=== PATIENT | female | born 1960 | race Caucasian/White ===

== ENCOUNTER 2018-04-12 08:24 | Inpatient (IN) | payer OTHER, MEDICAID ==
[~2018-04-12] VITALS: Ht 160 cm; Wt 74.8 kg
[2018-04-12] MEDS ORDERED: DEXTROSE 50% WATER 50ML SYRINGE IV ONE (09:15)
[2018-04-12] MEDS ORDERED: HYDROCODONE/ACETAMINOPHEN 5/325MG TABLET PO ONE (09:15)
[2018-04-12 09:55] LABS: HEMOGLOBIN. 12.1 g/dL (12.0-16.0); MEAN CORPUSCULAR HEMOGLOBIN 28.9 pg (28.0-32.0); MEAN CORPUSCULAR VOLUME 88.4 fL (81.0-99.0); PLATELET 99 x1000/uL (130-400); RED BLOOD CELL COUNT 4.18 mill/uL (4.2-5.4); RED CELL DISTRIBUTION WIDTH 16.1 % (11.6-14.6)
[2018-04-12 09:56] LABS: CHLORIDE 99 mEq/L (98-107)
[2018-04-12 09:59] LABS: INR 1.2; PARTIAL THROMBOPLASTIN TIME 29.8 sec (23.4-31.0)
[2018-04-12 11:37] LABS: PLATELET ESTIMATE DECREASED
[2018-04-12 12:00] VITALS: BP 164/61
[2018-04-12] MEDS ORDERED: LEVOFLOXACIN 750MG PREMIX 150 ML IV ONE (12:00)
[2018-04-12] MEDS ORDERED: SODIUM CHLORIDE 0.9% 1000ML BAG (SEPSIS BOLUS) IV ONE (12:00)
[2018-04-12 14:00] VITALS: BP 164/61
[2018-04-12] MEDS ORDERED: HYDROCODONE/ACETAMINOPHEN 10/325MG TABLET PO PRN (15:00)
[2018-04-12] MEDS ORDERED: HYDROCODONE/ACETAMINOPHEN 5/325MG TABLET PO PRN (15:00)
[2018-04-12] MEDS ORDERED: ACETAMINOPHEN 650MG SUPP PR PRN (15:00)
[2018-04-12] MEDS ORDERED: MAGNESIUM/ALUMINUM HYDROXIDE/SIMETHICONE 30ML UDC PO PRN (15:00)
[2018-04-12] MEDS ORDERED: ACETAMINOPHEN 650MG/20.3ML UDC GT PRN (15:00)
[2018-04-12] MEDS ORDERED: ONDANSETRON HCL 4MG/2ML INJ IV PRN (15:00)
[2018-04-12] MEDS ORDERED: ACETAMINOPHEN 325MG TABLET PO PRN (15:00)
[2018-04-12 16:00] VITALS: BP_SYST 157; BP_SYST 164; BP_DIAS 61; BP_DIAS 73
[2018-04-12] MEDS ORDERED: MORPHINE SULFATE 4 MG/ML CPJ (NOT FOR IM USE) IV PRN (17:15)
[2018-04-12 20:00] VITALS: BP 150/60
[2018-04-12 20:31] LABS: AMMONIA 48 uMol/L (<32)
[2018-04-12] MEDS: AMLODIPINE 10MG TABLET PO SCH (22:39)
[2018-04-13] VITALS (8 sets, daily range): BP systolic 124–189; BP diastolic 60–99
[2018-04-13] MEDS ORDERED: DEXTROSE 50% WATER 50ML SYRINGE IV ONE (00:34)
[2018-04-13] MEDS ORDERED: DEXTROSE 50% WATER 50ML SYRINGE IV PRN (00:45)
[2018-04-13] MEDS: CLONIDINE 0.1MG TABLET PO PRN ×4 (00:48→21:44)
[2018-04-13 01:06] LABS: T4 FREE 1.02 ng/dL (0.76-1.46)
[2018-04-13 01:08] LABS: CREATINE KINASE MB FRACTION 5.1 ng/mL (0.5-3.6)
[2018-04-13] MEDS: BLOOD SUGAR DIAGNOSTIC STRIP TEST SCH ×4 (07:29→21:44)
[2018-04-13] MEDS: INSULIN LISPRO 100 UNITS/ML SUBCUT SCH ×4 (08:10→21:00)
[2018-04-13] MEDS: AMLODIPINE 10MG TABLET PO SCH ×2 (09:00→13:25)
[2018-04-13 11:28] LABS: BASOPHILS % 0.8 % (0.0-2.0); HEMATOCRIT. 33.1 % (36.0-48.0); HEMOGLOBIN. 10.8 g/dL (12.0-16.0); LYMPHOCYTES % 21.5 % (20.0-50.0); MEAN CORPUSCULAR HEMOGLOBIN 28.7 pg (28.0-32.0); MEAN CORPUSCULAR VOLUME 88.2 fL (81.0-99.0); MEAN PLATELET VOLUME 8.6 fl (7.4-10.4); MONOCYTES % 11.7 % (2.0-8.0); PLATELET 118 x1000/uL (130-400); RED BLOOD CELL COUNT 3.76 mill/uL (4.2-5.4); RED CELL DISTRIBUTION WIDTH 16.4 % (11.6-14.6)
[2018-04-13 11:54] LABS: CHLORIDE 104 mEq/L (98-107)
[2018-04-13 12:00] LABS: PHOSPHORUS 4.2 mg/dL (2.5-4.9)
[2018-04-13 12:01] LABS: LDL CHOLESTEROL 24 mg/dL (5-100)
[2018-04-13 12:05] LABS: CREATINE KINASE 101 IU/L (26-192); T4 FREE 0.94 ng/dL (0.76-1.46)
[2018-04-13 12:11] LABS: HDL CHOLESTEROL 42 mg/dL (40-59)
[2018-04-13] MEDS: LOSARTAN POTASSIUM 50 MG TABLET PO SCH (15:31)
[2018-04-13] MEDS: METOPROLOL TARTRATE 50MG TABLET PO SCH (21:44)
[2018-04-14 04:00] VITALS: BP 177/55
[2018-04-14 06:00] VITALS: BP 152/62
[2018-04-14] MEDS: BLOOD SUGAR DIAGNOSTIC STRIP TEST SCH ×3 (06:55→17:42)
[2018-04-14 08:00] VITALS: BP 190/83
[2018-04-14 08:03] LABS: BASOPHILS % 1.2 % (0.0-2.0); HEMATOCRIT. 34.2 % (36.0-48.0); HEMOGLOBIN. 11.2 g/dL (12.0-16.0); LYMPHOCYTES % 30.8 % (20.0-50.0); MEAN CORPUSCULAR HEMOGLOBIN 29.1 pg (28.0-32.0); MEAN CORPUSCULAR VOLUME 88.6 fL (81.0-99.0); MEAN PLATELET VOLUME 8.3 fl (7.4-10.4); MONOCYTES % 14.3 % (2.0-8.0); NEUTROPHILS % 47.7 % (40.0-76.0); PLATELET 122 x1000/uL (130-400); RED BLOOD CELL COUNT 3.86 mill/uL (4.2-5.4); RED CELL DISTRIBUTION WIDTH 16.4 % (11.6-14.6)
[2018-04-14 08:21] LABS: CHLORIDE 100 mEq/L (98-107)
[2018-04-14] MEDS: METOPROLOL TARTRATE 50MG TABLET PO SCH (08:24)
[2018-04-14] MEDS: LOSARTAN POTASSIUM 50 MG TABLET PO SCH (08:25)
[2018-04-14 08:28] LABS: PHOSPHORUS 4.1 mg/dL (2.5-4.9)
[2018-04-14] MEDS: INSULIN LISPRO 100 UNITS/ML SUBCUT SCH ×3 (08:28→17:42)
[2018-04-14 12:00] VITALS: BP 145/60
[2018-04-14 13:06] LABS: KAPPA LT CHAINS FREE SERUM 267.4 mg/L (3.3-19.4); KAPPA/LAMBDA RATIO 1.18 (0.26-1.65); LAMBDA LT CHAINS FREE SERUM 226.2 mg/L (5.7-26.3)
[2018-04-14 16:00] VITALS: BP 142/62
[2018-04-14 17:42] VITALS: BP 142/62
[2018-04-14] MEDS ORDERED: LOSARTAN POTASSIUM 50 MG TABLET PO SCH (21:00)
[2018-04-15 04:17] LABS: A/G RATIO 1.3 (0.7-1.7); ALPHA-1-GLOBULIN 0.3 g/dL (0.0-0.4); ALPHA-2-GLOBULIN 0.7 g/dL (0.4-1.0); BETA GLOBULIN 0.8 g/dL (0.7-1.3); GAMMA GLOBULINS 1.4 g/dL (0.4-1.8); GLOBULIN TOTAL 3.2 g/dL (2.2-3.9); M-SPIKE Not Observed g/dL (Not Observed); TOTAL PROTEIN SERUM 7.2 g/dL (6.0-8.5)
[2018-04-15 13:06] LABS: IMMUNOGLOBULIN A 278 mg/dL (87-352); IMMUNOGLOBULIN G 1250 mg/dL (700-1600); IMMUNOGLOBULIN M 204 mg/dL (26-217)
== END 2018-04-14 18:30 | disposition home or self-care (01) | DRG 682 ==
LOC: ER 08:24 → 7WST 11:53 → EDBEDREQTM 11:54 → EDBEDREQ 11:54 → ENRESERV 12:31
PROVIDERS: ADMIT Internal Medicine; ATTEND Internal Medicine
PROC: 2W3EX1Z Immobilization of Right Hand using Splint (ICD-10-PCS; principal; 2018-04-12)
PROC: 5A1D70Z Performance of Urinary Filtration, Intermittent, Less than 6 Hours Per Day (ICD-10-PCS; 2018-04-13)
DX: I12.0 Hypertensive chronic kidney disease with stage 5 chronic kidney disease or end stage renal disease (principal); E43 Unspecified severe protein-calorie malnutrition; N18.6 End stage renal disease; D61.818 Other pancytopenia; S62.304A Unspecified fracture of fourth metacarpal bone, right hand, initial encounter for closed fracture; E05.90 Thyrotoxicosis, unspecified without thyrotoxic crisis or storm; E11.649 Type 2 diabetes mellitus with hypoglycemia without coma; E78.5 Hyperlipidemia, unspecified; R55 Syncope and collapse; W01.0XXA Fall on same level from slipping, tripping and stumbling without subsequent striking against object, initial encounter; E11.22 Type 2 diabetes mellitus with diabetic chronic kidney disease; D72.825 Bandemia; S41.111A Laceration without foreign body of right upper arm, initial encounter; Z68.29 Body mass index [BMI] 29.0-29.9, adult; Y93.89 Activity, other specified; Y92.89 Other specified places as the place of occurrence of the external cause; Y99.8 Other external cause status; Z82.49 Family history of ischemic heart disease and other diseases of the circulatory system; Z83.3 Family history of diabetes mellitus; Z99.2 Dependence on renal dialysis
CPT/HCPCS: 36415; 70450; 71045; 72100; 73090; 73110; 73120; 80053; 80061; 82140; 82550; 82553; 82784; 82962; 83036; 83605; 83615; 83690; 83735; 83880; 83883; 84100; 84155; 84165; 84439; 84443; 84481; 84484; 85025; 85610; 85730; 86334; 87040; 93005; 93306; 93880; 93970; 96365; 96375; 97162; 99285; J1956; J7030